=== PATIENT | female | born 1945 | race Caucasian/White ===

== ENCOUNTER 2016-08-17 04:55 | Day surgery (SDC) | payer MEDICARE ==
[~2016-08-17 04:55] MED LIST: ACET500CAP PO; ALLERGY SHOTS; ASAB PO; BIOTIN5 MG PO; BREO ELLIPTA INH; CELEXA10 PO; CYANO1000T PO; CYANO1000T SL; EFFEX37.5 PO; ESTRADIOL0.05 MG TD; IBU800 PO; L40 PO; LEXAPRO10 PO; LIPITOR10 PO; MELA3 PO; MIRAPEX1 MG PO; MIRAPEX1.5 MG PO; MIRAPEX5 PO; NEUR300 PO; PRILO PO; PROBIOTICS; PROVHFA INH; SYN.025B PO; TOPXL25 PO; ULTRAM50 PO; VASERETIC10 PO; X5 PO; ZOCOR40 PO; ZYRTEC ALLGY10 MG PO
[2016-08-26] MEDS ORDERED: SEROQUEL25 PO (15:11)
[2016-12-31] MEDS ORDERED: MAGOX4 PO (09:51)
[2016-12-31] MEDS ORDERED: LYRICA50 PO (09:52)
[2016-12-31] MEDS ORDERED: KLONO1 PO (09:52)
[2016-12-31] MEDS ORDERED: ZYRTEC ALLGY10 MG PO (09:54)
[2016-12-31] MEDS ORDERED: VENTOLIN HFA INH (10:18)
[2016-12-31] MEDS ORDERED: BREO ELLIPTA INH (10:18)
[2017-03-04] MEDS ORDERED: PROTONIX PO (12:41)
[2017-03-09] MEDS ORDERED: NORCO1 TA1 PO (12:06)
== END 2016-08-17 07:37 | disposition home or self-care (01) ==
LOC: SDC 04:55
PROVIDERS: Orthopaedic Surgery
PROC: 3E0R3BZ Introduction of Anesthetic Agent into Spinal Canal, Percutaneous Approach (ICD-10-PCS; 2016-08-17)
PROC: 3E0R33Z Introduction of Anti-inflammatory into Spinal Canal, Percutaneous Approach (ICD-10-PCS; principal; 2016-08-17 07:45)
DX: M54.16 Radiculopathy, lumbar region (principal); G43.909 Migraine, unspecified, not intractable, without status migrainosus; E78.00 Pure hypercholesterolemia, unspecified; I10 Essential (primary) hypertension; K58.9 Irritable bowel syndrome, unspecified; J45.909 Unspecified asthma, uncomplicated; M19.90 Unspecified osteoarthritis, unspecified site; Z86.73 Personal history of transient ischemic attack (TIA), and cerebral infarction without residual deficits; Z96.1 Presence of intraocular lens; Z90.89 Acquired absence of other organs; Z88.5 Allergy status to narcotic agent; Z87.891 Personal history of nicotine dependence
CPT/HCPCS: J1040; J2250; J3010; Q9967

== ENCOUNTER 2016-08-31 06:17 | Day surgery (SDC) | payer MEDICARE ==
[~2016-08-31 06:17] MED LIST changes: +SEROQUEL25 PO
[2016-12-31] MEDS ORDERED: MAGOX4 PO (09:51)
[2016-12-31] MEDS ORDERED: LYRICA50 PO (09:52)
[2016-12-31] MEDS ORDERED: KLONO1 PO (09:52)
[2016-12-31] MEDS ORDERED: ZYRTEC ALLGY10 MG PO (09:54)
[2016-12-31] MEDS ORDERED: BREO ELLIPTA INH (10:18)
[2016-12-31] MEDS ORDERED: VENTOLIN HFA INH (10:18)
[2017-03-04] MEDS ORDERED: PROTONIX PO (12:41)
[2017-03-09] MEDS ORDERED: NORCO1 TA1 PO (12:06)
== END 2016-08-31 10:15 | disposition home or self-care (01) ==
LOC: SDC 06:17
PROVIDERS: Orthopaedic Surgery
PROC: 3E0R3BZ Introduction of Anesthetic Agent into Spinal Canal, Percutaneous Approach (ICD-10-PCS; 2016-08-31)
PROC: 3E0R33Z Introduction of Anti-inflammatory into Spinal Canal, Percutaneous Approach (ICD-10-PCS; principal; 2016-08-31 07:15)
DX: M54.16 Radiculopathy, lumbar region (principal); G43.909 Migraine, unspecified, not intractable, without status migrainosus; E78.00 Pure hypercholesterolemia, unspecified; I10 Essential (primary) hypertension; J45.909 Unspecified asthma, uncomplicated; G47.30 Sleep apnea, unspecified; Z99.81 Dependence on supplemental oxygen; M19.90 Unspecified osteoarthritis, unspecified site; K21.9 Gastro-esophageal reflux disease without esophagitis; E03.9 Hypothyroidism, unspecified; F41.9 Anxiety disorder, unspecified; Z90.710 Acquired absence of both cervix and uterus; Z90.49 Acquired absence of other specified parts of digestive tract; Z87.891 Personal history of nicotine dependence; Z88.5 Allergy status to narcotic agent; Z98.890 Other specified postprocedural states
CPT/HCPCS: J1040; J2250; J3010; Q9967

== ENCOUNTER 2016-09-17 05:15 | Day surgery (SDC) | payer MEDICARE ==
[2016-09-08 11:41] LABS: BASOPHILS 0.3 %; BASOPHILS ABSOLUTE 0.02 10/3/uL (0.0-0.16); EOSINOPHILS 2.5 %; EOSINOPHILS ABSOLUTE 0.19 10/3/uL (0.0-0.53); HEMATOCRIT 39.2 % (36.0-48.0); HEMOGLOBIN 13.2 g/dL (12.0-16.0); IMMATURE GRANULOCYTES 0.4 %; IMMATURE GRANULOCYTES ABSOLUTE 0.03 10/3/uL (0.0-0.11); LYMPHOCYTES 24.3 %; LYMPHOCYTES ABSOLUTE 1.86 10/3/uL (0.67-4.30); MANUAL DIFF NO %; MEAN CORPUS HGB CONC 33.7 g/dL (32.0-36.0); MEAN CORPUSCULAR HEMOGLOB 30.7 pg (26.0-34.0); MEAN CORPUSCULAR VOLUME 91.2 fL (80-100); MEAN PLATELET VOLUME 10.9 fL (9.2-13.0); MONOCYTES 8.6 %; MONOCYTES ABSOLUTE 0.66 10/3/uL (0.21-1.20); NEUTROPHILS 63.9 %; PLATELET COUNT 202 10/3/uL (150-400); RBC DISTRIBUTION WIDTH 13.2 % (12.0-16.0); WHITE BLOOD CELLS 7.7 10/3/uL (4.5-10.5)
[2016-09-08 12:02] LABS: A/G RATIO 1.3 (0.7-1.9); ALBUMIN 3.9 G/DL (3.5-5.0); CALCIUM, SERUM 8.7 MG/DL (8.5-10.4); CHLORIDE, SERUM 102 MMOL/L (96-112); CO2 (CARBON DIOXIDE) 34 MMOL/L (24-34); CREATININE 0.96 MG/DL (0.55-1.02); GFR AFRICAN AMERICAN 69 ML/MIN (>=60); GFR NON AFRICAN AMERICAN 60 ML/MIN (>=60); GLUCOSE, SERUM 73 MG/DL (60-99); POTASSIUM, SERUM 3.8 MMOL/L (3.5-5.3); SGOT(AST) 11 U/L (5-40); SGPT(ALT) 21 U/L (5-65); SODIUM, SERUM 141 MMOL/L (135-148); TOTAL BILIRUBIN 0.5 MG/DL (0-1.2); TOTAL PROTEIN 6.9 G/DL (6.0-8.5)
[2016-09-08 12:03] LABS: ALKALINE PHOSPHATASE 80 U/L (45-117); BUN (BLOOD UREA NITROGEN) 21 MG/DL (6-23)
--- NOTE | ~2016-09-17 | OP ---
Record Of Operation [facility] [address] [place]. 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 POSTOPERATIVE DIAGNOSIS: Enlarging symptomatic soft tissue neoplasm of antecubital space of the right forearm. PROCEDURE: Resection of mass of right antecubital space of the right forearm. SURGEON: Dinora Marion M.D. ANESTHESIA: General with intubation. COMPLICATIONS: None. ESTIMATED BLOOD LOSS: Less than 5 mL. SPECIMENS: Mass from the right forearm. DRAINS: None. LAP AND SPONGE COUNT: Correct x3. BRIEF HISTORY: This 71-year-old female presented with an enlarging symptomatic mass located in the antecubital space of the right forearm. It was felt that resection of this mass was indicated. This procedure, the risks, benefits, and alternatives, including but not limited to the risk for bleeding, infection, pain, swelling, scarring, deformity to the area, seroma formation, hematoma formation, nerve injury, chronic paresthesia, pain, numbness, neuralgia or neuroma, nerve injuries, muscle weakness or paralysis to the extremity, recurrence of the mass, and unforeseen complications including deep venous thrombosis, pulmonary embolus, myocardial infarction, stroke, pneumonia, and were explained to the patient prior to the surgery. Her questions were answered. She understood the risks and agreed to the surgery as planned. FINDINGS: The patient had a large well-defined encapsulated mass in the antecubital space. The mass was some 4 to 5 cm in size. This mass was deep in the arm and intramuscular in nature. Great care was taken not to injure any neurovascular structures. DESCRIPTION OF PROCEDURE: After being properly identified and after discussing the risks and benefits of the surgery with the patient and family again in the preoperative area, and after identifying the area of concern with her in the preoperative area, the patient was taken to the operating room placed in supine position on the operating room table. General anesthesia was administered. She was intubated without difficulty. The right arm was prepped and draped sterilely in the usual fashion. After an appropriate "time-out" per Record Of Operation [facility] [address] [facility] [place] [id number] NAME: PERLITA CORDOVA : 45 STATUS : REG [facility] [place] PAT#: [id number] AGE: 71 ADM/REG DATE : 09/17/16 MR#: [id number] REPORT SERV DATE: 09/17/16 DICTATED BY: DINORA MARION III DATE: 09/17/16 REPORT STATUS : Draft TRANSCRIBED BY: MODSandra DATE: 09/17/16 [facility] standards, a horizontal incision was made directly over the mass in the antecubital space in the lines of Langerhans. The incision was continued through the subcutaneous tissue. Hemostasis was controlled with the cautery. Using sharp dissection, superior and inferior flaps were raised. The mass was deep within the intramuscular portion of the arm. Using sharp dissection, muscle layers were carefully dissected away from the mass. The mass again was intramuscular in nature, and was some 4 to 5 cm in length. This was a well- defined, well-encapsulated fatty-type mass. The mass was completely resected. At no point, any neurovascular structures were encountered or injured. The mass was completely removed. Hemostasis was assured. The subcutaneous tissue was closed with a running 3-0 Vicryl suture. The skin was closed with a running subcuticular 4-0 Monocryl stitch. The incision was injected with 0.5% Marcaine. Dressings were applied. Anesthesia was reversed. The patient was taken to the recovery room in stable condition. She tolerated the procedure well. Her family was informed the results of the surgery. The patient will be discharged when stable and comfortable. Her family was advised to keep the wound clean and dry for 48 hours, that she should not drive for two to three days after surgery or while using narcotics, and that she should resume her usual medications. She was given a prescription for hydrocodone 7.5/325 one p.o. t.i.d., #12, as needed for pain, which she was advised not to use while driving. She was asked to return in two weeks for followup or sooner if any fever, chills, wound drainage, or other problems prior to that time. RHJ/MODL Dinora Marion III, M.D. / [id number] CC: Caden Pennington III
--- NOTE | ~2016-09-17 | PREOPHP ---
PreOp History and Physical [address] [place]. [address] NAME: PERLITA CORDOVA : 45 STATUS : REG [facility] [place] PAT#: [id number] AGE: 71 ADM/REG DATE : 09/17/16 MR#: [id number] REPORT SERV DATE: 09/17/16 DICTATED BY: DINORA HARVEY III DATE: 08/24/16 REPORT STATUS : Draft TRANSCRIBED BY: JOHANA DATE: 08/24/16 HISTORY OF PRESENT ILLNESS: This 71-year-old female comes to the operating room for resection of a soft tissue mass over her right upper extremity. The patient complains of a mass over her right arm. This is located in the antecubital space. This is where a lipoma was excised about three years ago. She comes now for resection of this mass. PAST HISTORY: 1. Hypertension. 2. IBS. 3. Asthma. 4. Anxiety. 5. Hyperlipidemia. ALLERGIES: NONE. MEDICATIONS: Omeprazole, simvastatin, alprazolam, cetirizine, probiotic, venlafaxine, pramipexole. PAST SURGICAL HISTORY: Includes removal of lipoma from right foot in the past and removal of right forearm in 2014, left inguinal hernia repair, partial left toe amputation, and hysterectomy. FAMILY HISTORY: Positive for heart disease. SOCIAL HISTORY: The patient has a previous history of tobacco use. REVIEW OF SYSTEMS: The patient complains of swelling in her feet and legs and back pain. PHYSICAL EXAMINATION: GENERAL: This is a female, in no acute distress. She is alert and oriented x3. VITAL SIGNS: Blood pressure 113/71, pulse 64, temperature 97.3. HEENT: Unremarkable. Cranial nerves II through XII are normal. LUNGS: Clear. CARDIAC: Normal. Over the right forearm in the antecubital space, there is a soft tissue mass. This is soft, mobile, and nontender. The axilla are normal bilaterally. ASSESSMENT: 1. 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 2. Hypertension. 3. Anxiety. 4. Hyperlipidemia. 5. Asthma. 6. Irritable bowel syndrome. PreOp History and Physical [address] [address] NAME: PERLITA CORDOVA : 45 STATUS : REG [facility]#: [id number] AGE: 71 ADM/REG DATE : 09/17/16 MR#: [id number] REPORT SERV DATE: 09/17/16 DICTATED BY: DINORA HARVEY III DATE: 08/24/16 REPORT STATUS : Draft TRANSCRIBED BY: JOHANA DATE: 08/24/16 PLAN: The patient comes to operative room for resection of this right arm mass. This procedure, the risks, benefits, and alternatives, including not limited to the risk for bleeding, infection, pain, swelling, scarring, deformity to the area, seroma formation, hematoma formation, nerve injury, chronic paresthesia, pain, numbness, neuralgia or neuroma, nerve injuries, muscle weakness or paralysis to the involved extremity, and unforeseen complications including deep venous thrombosis, pulmonary embolus, myocardial infarction, stroke, pneumonia, and , have been explained to the patient prior to surgery. The possibility of recurrence of the mass has been explained. Her questions have been answered. She clearly understands the risks and agrees to surgery as planned. ELVIN/JOHANA Dinora Harvey III, M.D. / [id number]
[2016-12-31] MEDS ORDERED: MAGOX4 PO (09:51)
[2016-12-31] MEDS ORDERED: LYRICA50 PO (09:52)
[2016-12-31] MEDS ORDERED: KLONO1 PO (09:52)
[2016-12-31] MEDS ORDERED: ZYRTEC ALLGY10 MG PO (09:54)
[2016-12-31] MEDS ORDERED: VENTOLIN HFA INH (10:18)
[2016-12-31] MEDS ORDERED: BREO ELLIPTA INH (10:18)
[2017-03-04] MEDS ORDERED: PROTONIX PO (12:41)
[2017-03-09] MEDS ORDERED: NORCO1 TA1 PO (12:06)
== END 2016-09-17 17:32 | disposition home or self-care (01) ==
LOC: SDC 05:15
PROVIDERS: Surgery
PROC: 0KB70ZZ Excision of Right Upper Arm Muscle, Open Approach (ICD-10-PCS; principal; 2016-09-17 06:45)
DX: D17.9 Benign lipomatous neoplasm, unspecified (principal); I10 Essential (primary) hypertension; I71.2 Thoracic aortic aneurysm, without rupture; J45.909 Unspecified asthma, uncomplicated; G47.33 Obstructive sleep apnea (adult) (pediatric); K58.9 Irritable bowel syndrome, unspecified; K21.9 Gastro-esophageal reflux disease without esophagitis; F41.9 Anxiety disorder, unspecified; E78.5 Hyperlipidemia, unspecified; E66.9 Obesity, unspecified; Z68.34 Body mass index [BMI] 34.0-34.9, adult; Z98.890 Other specified postprocedural states; Z89.422 Acquired absence of other left toe(s); Z90.710 Acquired absence of both cervix and uterus; Z82.49 Family history of ischemic heart disease and other diseases of the circulatory system; Z87.891 Personal history of nicotine dependence; Z86.73 Personal history of transient ischemic attack (TIA), and cerebral infarction without residual deficits; Z99.89 Dependence on other enabling machines and devices; Z88.5 Allergy status to narcotic agent; Z79.82 Long term (current) use of aspirin; Z79.51 Long term (current) use of inhaled steroids; Z79.899 Other long term (current) drug therapy
CPT/HCPCS: 71020; 80053; 85025; 88304; 88307; 93005; A9270-GY; J0690; J2405; J3010

== ENCOUNTER 2016-10-09 17:41 | Observation (INO) | payer MEDICARE ==
--- NOTE | ~2016-10-09 | DS ---
Discharge Summary [facility] [address] [place]. [address] NAME: PERLITA CORDOVA : 45 STATUS : DIS [facility] PAT#: [id number] AGE: 71 ADM/REG DATE : 10/09/16 MR#: [id number] REPORT SERV DATE: 10/10/16 DICTATED BY: KALI WONG DATE: 10/10/16 REPORT STATUS : Draft TRANSCRIBED BY: MODL DATE: 10/10/16 ADMISSION DATE: 10/09/2016 DISCHARGE DATE: 10/10/2016 CHIEF COMPLAINT: On admission, left flank pain. DISCHARGE DIAGNOSES: 1. Possible acute pancreatitis. 2. Hypertension. 3. Hyperlipidemia. 4. Abdominal pain. 5. Historic of aortic aneurysm. HISTORY OF PRESENT ILLNESS: Please see full H and P by Dr. Garibay for details regarding initial presentation. Briefly, progressive left flank pain for several weeks. Thought to be due initially to hernia, has been constant and moderate in severity, left upper quadrant. Associated with nausea and cough. HOSPITAL COURSE: 1. Left flank pain. The patient had a CT scan without contrast in the ER which was negative. However, she had a lipase of 1200. I am not sure what to make of this, given a repeat an hour later was essentially normal. It went from a lab value of 1270 to 278. There is no ductal dilatation or anything seen on the CT scan was noncontrast. However, as mentioned, this is a very strange change, but happened very quickly. This morning, she is tolerating a diet. We will send her home after she tolerates a solid diet for lunch. I recommend outpatient followup with primary care. Consider right upper quadrant ultrasound for further evaluation. If it appears there are stones and/or any evidence of a recently passed stone, would likely be beneficial to consider an outpatient laparoscopic cholecystectomy. Again, I am skeptical that this was an acute pancreatitis episode, although you know certainly a lipase of 1200 is concerning, not certain if this could have been somebody else's blood versus a lab error versus a true value. 2. Hypertension. Continue home medications. 3. Hypokalemia. This was repleted. DISCHARGE MEDICATIONS: Same as admission. TIME SPENT ON DISCHARGE: Less than 30 minutes. DNK/MODL Kali Patricio Discharge Summary [address] [address] NAME: PERLITA CORDOVA : 45 STATUS : DIS [facility] PAT#: [id number] AGE: 71 ADM/REG DATE : 10/09/16 MR#: [id number] REPORT SERV DATE: 10/10/16 DICTATED BY: KALI WONG DATE: 10/10/16 REPORT STATUS : Draft TRANSCRIBED BY: MODSandra DATE: 10/10/16 MD Kendall / [id number] CC: MD RACHANA Duong SUSAN R.
--- NOTE | ~2016-10-09 | HP ---
History And Physical [facility] [id number] [place]. [address] NAME: PERLITA CORDOVA : 45 STATUS : ADM [facility] PAT#: [id number] AGE: 71 ADM/REG DATE : 10/09/16 MR#: [id number] REPORT SERV DATE: 10/10/16 DICTATED BY: PILAR ARITA DATE: 10/09/16 REPORT STATUS : Draft TRANSCRIBED BY: MODSandra DATE: 10/09/16 DATE OF ADMISSION: 10/09/2016 CHIEF COMPLAINT: Left flank pain. HISTORY OF PRESENT ILLNESS: The patient is a 71-year-old female with past medical history of ascending aneurysm followed by Dr. Tristan and Dr. Lyons who reports having left flank pain, over the last three weeks has been progressive. The patient was raking yards all day yesterday and even has been outdoors for most of last few weeks, but fairly active but has had progressive pain in the left flank. She initially thought it was secondary to prior hernia, but has not had similar type distention. Symptoms have been constant in moderate severity, left upper quadrant and associated with nausea and cough. No fever, chills, shortness of breath, or chest pain. Symptoms are worse with palpation. No relieving symptoms. No urinary changes, bowel changes, or dietary changes. REVIEW OF SYSTEMS: A 10-point review of systems negative except that noted in the HPI. PAST MEDICAL HISTORY: Prior stroke, aortic valve regurgitation, ascending aortic aneurysm, hypertension, hyperlipidemia, anxiety, IBS, TIA. PAST SURGICAL HISTORY: Complete hysterectomy, hernia left side, carpal tunnel right and left wrist, partial amputation of toe on left foot, removal of tumor left upper inner thigh, and removal of fatty tumor right arm, at elbow, and underarm. SOCIAL HISTORY: Prior smoking history of 10 years, quit many years ago, accompanied by spouse, occasional wine, no illicits. FAMILY HISTORY: Family history of heart disease. MEDICATIONS: Omeprazole, simvastatin, B12, pramipexole, lisinopril, Biotin, furosemide, baby aspirin, gabapentin, citalopram, melatonin, metoprolol succinate, atorvastatin, amlodipine, clonidine. ALLERGIES: NAUSEA AND VOMITING WITH OXYCODONE. PHYSICAL EXAMINATION: VITAL SIGNS: The patient's blood pressure 141/73, temperature 98.6, pulse 55, respirations 16, O2 sats 97%. GENERAL: No acute distress. Calm, pleasant, smiling. HEAD: Normocephalic, atraumatic. EYES: No scleral icterus. ENT: Does have cerumen impaction bilateral ears. Tympanic membrane difficult to appreciate. Does have cobblestoning posterior pharynx with erythema. RESPIRATORY: Clear to auscultation. No wheezes, rales. NECK: No JVD. History And Physical [address] [address] NAME: PERLITA CORDOVA : 45 STATUS : ADM [facility] PAT#: [id number] AGE: 71 ADM/REG DATE : 10/09/16 MR#: [id number] REPORT SERV DATE: 10/10/16 DICTATED BY: PILAR ARITA DATE: 10/09/16 REPORT STATUS : Draft TRANSCRIBED BY: JOHANA DATE: 10/09/16 GI: Soft, nontender in right lower quadrant but mildly tender to left lower quadrant, reproducible, but no rebound, no guarding. No fluid wave. : Deferred. MUSCULOSKELETAL: Moves all extremities x4. SKIN: Warm, dry. LYMPH: No cervical or supraclavicular lymphadenopathy. HEME: No bleeding or bruising. NEURO: Alert and oriented. Moves all extremities x4. Normal vocal artie. Symmetrical smile. Tongue midline. PSYCH: Appropriate mood and affect. LABORATORY DATA: CT abdomen and pelvis, unremarkable. Urinalysis, trace leukocyte esterase, but only two wbc's. No bacteria. CMP: Negative. Potassium 3.4, BUN and creatinine 15 and 1.02. Lipase 1270. CBC grossly within normal limits. ASSESSMENT AND PLAN: 1. Acute pancreatitis, mild. 2. Hypokalemia. 3. Hypertension. 4. Hyperlipidemia. 5. Asthma. 6. Anxiety. 7. Aortic aneurysm history. PLAN: 1. Acute pancreatitis, mild. CT with no acute hemorrhage or pancreatic changes. Lipase is 1200+, symptoms have been essentially subacute for last three weeks but progressed today. We will check lipid profile. Pain control, IV fluids, no direct medication length, rare alcohol history. No recent scorpion bites. Continue supportive treatment. IV fluids. The patient eager to eat currently. We will start on clears as tolerated and then advance in a.m. if tolerates. 2. Hypokalemia, replace per protocol. 3. Hypertension, monitor with p.r.n. and continue home medications. 4. Hyperlipidemia, on statin. 5. Asthma, supportive, not in acute exacerbation. 6. Anxiety, irritable bowel syndrome, continue home medications. 7. Aortic aneurysm history, reports previously at 4.1 cm. We will schedule followup with Dr. Lyons as the patient has been slightly lost to follow up. Does not appear to have any acute changes or symptoms currently, was followed by Dr. Tristan in the past also approximately a year ago, but is in current transition with Dr. Lyons. 8. All questions answered to the patient and family at bedside. History And Physical [address] [address] NAME: PERLITA CORDOVA : 45 STATUS : ADM [facility] PAT#: [id number] AGE: 71 ADM/REG DATE : 10/09/16 MR#: [id number] REPORT SERV DATE: 10/10/16 DICTATED BY: PILAR ARITA DATE: 10/09/16 REPORT STATUS : Draft TRANSCRIBED BY: JOHANA DATE: 10/09/16 DDN/JOHANA Pilar Arita MD / [id number] CC: MD Caterina Duong ARNP
[2016-10-09 16:44] LABS: BASOPHILS 0.4 %; BASOPHILS ABSOLUTE 0.03 10/3/uL (0.0-0.16); EOSINOPHILS 2.1 %; EOSINOPHILS ABSOLUTE 0.16 10/3/uL (0.0-0.53); ER CBC TAT 0 Hrs 07 Mins; HEMATOCRIT 40.5 % (36.0-48.0); HEMOGLOBIN 13.4 g/dL (12.0-16.0); IMMATURE GRANULOCYTES 0.3 %; IMMATURE GRANULOCYTES ABSOLUTE 0.02 10/3/uL (0.0-0.11); LYMPHOCYTES 25.5 %; LYMPHOCYTES ABSOLUTE 1.94 10/3/uL (0.67-4.30); MEAN CORPUS HGB CONC 33.1 g/dL (32.0-36.0); MEAN CORPUSCULAR HEMOGLOB 30.3 pg (26.0-34.0); MEAN CORPUSCULAR VOLUME 91.6 fL (80-100); MEAN PLATELET VOLUME 10.8 fL (9.2-13.0); MONOCYTES 8.2 %; MONOCYTES ABSOLUTE 0.62 10/3/uL (0.21-1.20); NEUTROPHILS 63.5 %; NEUTROPHILS ABSOLUTE 4.83 10/3/uL (2.02-8.40); PLATELET COUNT 215 10/3/uL (150-400); RBC DISTRIBUTION WIDTH 13.2 % (12.0-16.0); RED CELL COUNT 4.42 10/6/uL (4.0-5.6); WHITE BLOOD CELLS 7.6 10/3/uL (4.5-10.5)
[2016-10-09 16:47] LABS: MANUAL DIFF NO %
[2016-10-09 17:01] LABS: A/G RATIO 1.1 (0.7-1.9); ALBUMIN 3.9 G/DL (3.5-5.0); ALKALINE PHOSPHATASE 90 U/L (45-117); CALCIUM, SERUM 9.2 MG/DL (8.5-10.4); CHLORIDE, SERUM 105 MMOL/L (96-112); CO2 (CARBON DIOXIDE) 31 MMOL/L (24-34); CREATININE 1.02 MG/DL (0.55-1.02); GFR AFRICAN AMERICAN 64 ML/MIN (>=60); GFR NON AFRICAN AMERICAN 55 ML/MIN (>=60); GLOBULIN 3.6 G/DL (2.5-4.1); POTASSIUM, SERUM 3.4 MMOL/L (3.5-5.3); SGOT(AST) 22 U/L (5-40); SGPT(ALT) 30 U/L (5-65); SODIUM, SERUM 141 MMOL/L (135-148); TOTAL BILIRUBIN 0.5 MG/DL (0-1.2); TOTAL PROTEIN 7.5 G/DL (6.0-8.5)
[2016-10-09 17:02] LABS: BUN (BLOOD UREA NITROGEN) 15 MG/DL (6-23); GLUCOSE, SERUM 91 MG/DL (60-99)
[2016-10-09 18:21] LABS: ASCORBIC ACID (UR NOT ORDER) NEG (NEG); BILIRUBIN, URINE NEGATIVE (NEG); KETONE, URINE TRACE MG/DL (NEG); LEUKOCYTE ESTERASE(NOT OR TRACE (NEG); NITRITE (URINE) NEG (NEG); WBC (NOT ORDERED) (RFLEX) 2 (0-5)
[2016-10-09 18:21] LABS: ALBUMIN 3.7 G/DL (3.5-5.0); SGOT(AST) 21 U/L (5-40); SGPT(ALT) 34 U/L (5-65); TOTAL BILIRUBIN 0.5 MG/DL (0-1.2); TOTAL PROTEIN 6.9 G/DL (6.0-8.5)
[2016-10-09 18:22] LABS: ER URINALYSIS TAT 1 Hrs 47 Mins
[2016-10-09 18:22] LABS: ALKALINE PHOSPHATASE 70 U/L (45-117); DIRECT BILIRUBIN < 0.1 MG/DL (0.0-0.4); INDIRECT BILIRUBIN(NOT ORDER) 0.4 MG/DL (0.1-0.9)
[2016-10-09] MEDS ORDERED: PRILO PO (20:45)
[2016-10-09] MEDS ORDERED: ZESTRIL20 MG PO (20:45)
[2016-10-09] MEDS ORDERED: MIRAPEX1.5 MG PO (20:45)
[2016-10-09] MEDS ORDERED: CYANO1000T PO (20:45)
[2016-10-09] MEDS ORDERED: L40 PO (20:46)
[2016-10-09] MEDS ORDERED: HALF81 PO (20:46)
[2016-10-09] MEDS ORDERED: BIOTIN10 MG PO (20:46)
[2016-10-09] MEDS ORDERED: LIPITOR20 PO (20:47)
[2016-10-09] MEDS ORDERED: NEUR300 PO (20:47)
[2016-10-09] MEDS ORDERED: TOPXL25 PO (20:47)
[2016-10-09] MEDS ORDERED: LEXAPRO10 PO (20:47)
[2016-10-09] MEDS ORDERED: MELATONIN10 M2 PO (20:47)
[2016-10-09] MEDS ORDERED: SEROQUEL25 PO (20:48)
[2016-10-09] MEDS ORDERED: CAT1 PO (20:48)
[2016-10-09] MEDS ORDERED: NORV5 PO (20:48)
[2016-10-10 00:06] LABS: PROCALCITONIN <0.05 ng/mL (<0.5)
[2016-10-10 02:17] LABS: BASOPHILS 0.5 %; BASOPHILS ABSOLUTE 0.03 10/3/uL (0.0-0.16); EOSINOPHILS 2.4 %; EOSINOPHILS ABSOLUTE 0.15 10/3/uL (0.0-0.53); HEMATOCRIT 36.8 % (36.0-48.0); IMMATURE GRANULOCYTES 0.2 %; IMMATURE GRANULOCYTES ABSOLUTE 0.01 10/3/uL (0.0-0.11); LYMPHOCYTES 33.2 %; LYMPHOCYTES ABSOLUTE 2.06 10/3/uL (0.67-4.30); MANUAL DIFF NO %; MEAN CORPUS HGB CONC 32.6 g/dL (32.0-36.0); MEAN CORPUSCULAR HEMOGLOB 29.8 pg (26.0-34.0); MEAN CORPUSCULAR VOLUME 91.3 fL (80-100); MEAN PLATELET VOLUME 11.5 fL (9.2-13.0); MONOCYTES 9.8 %; MONOCYTES ABSOLUTE 0.61 10/3/uL (0.21-1.20); NEUTROPHILS 53.9 %; NEUTROPHILS ABSOLUTE 3.34 10/3/uL (2.02-8.40); PLATELET COUNT 163 10/3/uL (150-400); RBC DISTRIBUTION WIDTH 13.4 % (12.0-16.0); RED CELL COUNT 4.03 10/6/uL (4.0-5.6); WHITE BLOOD CELLS 6.2 10/3/uL (4.5-10.5)
[2016-10-10 02:35] LABS: A/G RATIO 1.1 (0.7-1.9); ALBUMIN 3.4 G/DL (3.5-5.0); ALKALINE PHOSPHATASE 78 U/L (45-117); CALCIUM, SERUM 8.4 MG/DL (8.5-10.4); CHLORIDE, SERUM 110 MMOL/L (96-112); CO2 (CARBON DIOXIDE) 28 MMOL/L (24-34); DIRECT BILIRUBIN 0.1 MG/DL (0.0-0.4); GFR AFRICAN AMERICAN 86 ML/MIN (>=60); GFR NON AFRICAN AMERICAN 74 ML/MIN (>=60); GLUCOSE, SERUM 91 MG/DL (60-99); HDL CHOLESTEROL 76 MG/DL (> 49); INDIRECT BILIRUBIN(NOT ORDER) 0.4 MG/DL (0.1-0.9); POTASSIUM, SERUM 3.7 MMOL/L (3.5-5.3); SGPT(ALT) 29 U/L (5-65); SODIUM, SERUM 143 MMOL/L (135-148); TOTAL BILIRUBIN 0.5 MG/DL (0-1.2); TOTAL PROTEIN 6.4 G/DL (6.0-8.5); TRIGLYCERIDE 84 MG/DL (< 150)
[2016-10-10 02:44] LABS: BUN (BLOOD UREA NITROGEN) 11 MG/DL (6-23)
[2016-10-10 02:45] LABS: CHOL/HDL RATIO(NOT ORDER) 1.9 (0-5); CHOLESTEROL 146 MG/DL (< 200); LDL CHOLESTEROL 54 MG/DL (< 130); NON-HDL CHOLESTEROL 70 MG/DL (< 160); SGOT(AST) 19 U/L (5-40)
[2016-10-10 03:52] LABS: PROCALCITONIN <0.05 ng/mL (<0.5)
[2016-12-31] MEDS ORDERED: MAGOX4 PO (09:51)
[2016-12-31] MEDS ORDERED: LYRICA50 PO (09:52)
[2016-12-31] MEDS ORDERED: KLONO1 PO (09:52)
[2016-12-31] MEDS ORDERED: ZYRTEC ALLGY10 MG PO (09:54)
[2016-12-31] MEDS ORDERED: BREO ELLIPTA INH (10:18)
[2016-12-31] MEDS ORDERED: VENTOLIN HFA INH (10:18)
[2017-03-04] MEDS ORDERED: PROTONIX PO (12:41)
[2017-03-09] MEDS ORDERED: NORCO1 TA1 PO (12:06)
== END 2016-10-10 15:00 | disposition home or self-care (01) ==
LOC: ER 17:41 → 4EA 21:06
PROVIDERS: Emergency Medicine; Student in an Organized Health Care Education/Training Program
DX: R10.9 Unspecified abdominal pain (principal); I10 Essential (primary) hypertension; E78.5 Hyperlipidemia, unspecified; F41.9 Anxiety disorder, unspecified; E87.6 Hypokalemia; J45.909 Unspecified asthma, uncomplicated; Z90.710 Acquired absence of both cervix and uterus; Z98.890 Other specified postprocedural states; Z87.891 Personal history of nicotine dependence; Z79.82 Long term (current) use of aspirin; Z79.899 Other long term (current) drug therapy; Z86.73 Personal history of transient ischemic attack (TIA), and cerebral infarction without residual deficits; Z88.8 Allergy status to other drugs, medicaments and biological substances
CPT/HCPCS: 74177; 80053; 80061; 80076; 81001; 82150; 82248; 83690; 83735; 84145; 85025; 93005; 96372; 99285; A9270-GY; G0378; Q9967